=== PATIENT | male | born 1955 | race Caucasian/White ===

== ENCOUNTER 2021-02-17 18:28 | Inpatient (IN) | payer BC, MEDICAID ==
[~2021-02-17] VITALS: Ht 172.7 cm; Wt 70.9 kg
--- NOTE | 2021-02-17 18:43 | NUR ---
Patient brought in by [facility] 88 for vomiting bright red blood for the last 6 hours, patient is alert and oriented upon arrival
[2021-02-17] MEDS ORDERED: IV NORMAL SALINE 1000 ML BAG IV ONE (18:45)
[2021-02-17] MEDS ORDERED: PANTOPRAZOLE SODIUM IV 80 MG in IV DEXTROSE 5% 500 ML IV ONE (18:45)
[2021-02-17] MEDS ORDERED: DILTIAZEM HCL 25 MG IV IV ONE ×3 (19:15→23:00)
[2021-02-17 19:16] LABS: MEAN CORPUSCULAR HEMOGLOBIN 35.1 uug (23.8-33.4); MEAN CORPUSCULAR VOLUME 108.5 fL (73.0-96.2); PLATELET COUNT (AUTO) 187 K/uL (152-348)
[2021-02-17 19:18] LABS: CREATININE 1.3 mg/dL (0.6-1.3); POTASSIUM 4.3 mmol/L (3.5-5.1)
[2021-02-17] MEDS ORDERED: PANTOPRAZOLE SODIUM 40 MG VIAL ONE (19:22)
[2021-02-17 19:28] LABS: BILIRUBIN,DIRECT 0.7 mg/dL (0.0-0.2); BILIRUBIN,TOTAL 1.6 mg/dL (0.2-1.0); TOTAL PROTEIN, SERUM 6.9 g/dL (6.4-8.2)
[2021-02-17] MEDS ORDERED: DILTIAZEM HCL 25 MG IV ONE ×3 (19:28→23:07)
[2021-02-17] MEDS ORDERED: LEVO50TA8 PO (19:45)
[2021-02-17] MEDS ORDERED: METO-357 PO (19:45)
[2021-02-17] MEDS ORDERED: AMLO10TA59 PO (19:45)
[2021-02-17] MEDS ORDERED: MAGNESIUM SULFATE/D5W 100 ML ONE ×3 (19:47→22:20)
[2021-02-17] MEDS ORDERED: POTASSIUM CHLORIDE 50 ML ONE ×4 (19:47→23:30)
[2021-02-17] MEDS: MAGNESIUM SULFATE/D5W 100 ML IV SCH ×3 (19:50→22:19)
[2021-02-17] MEDS: POTASSIUM CHLORIDE 50 ML IV SCH ×4 (19:50→23:30)
[2021-02-17] MEDS ORDERED: IV NS 1000 ML 1,000 ML IV ONE ×2 (20:00)
[2021-02-18] VITALS (15 sets, daily range): BP systolic 112–182; BP diastolic 64–97
[2021-02-18 00:47] LABS: *BILIRUBIN,URIN NEGATIVE (NEGATIVE); *CLARITY,URINE CLEAR (CLEAR); *COLOR,URINE YELLOW (YELLOW); *KETONES,URINE 3+ (NEGATIVE); *UROBILINOGEN,URINE 0.2 E.U./dl (NORMAL); LEUKOCYTE ESTERASE ,URINE NEGATIVE (NEGATIVE); NITRITE, URINE NEGATIVE (NEGATIVE); PH,URINE 5.5 (5.0-8.0); UGLUCOSE NEGATIVE (NEGATIVE)
[2021-02-18 00:49] LABS: *BLOOD, URINE TRACE (NEGATIVE)
--- NOTE | 2021-02-18 00:53 | NUR ---
Dr. Garza on panel call with Dr. Bonifacio Bae
[2021-02-18 00:57] LABS: BACTERIA,URINE NONE SEEN /HPF (NONE SEEN); COARSE GRANULAR CASTS,URINE 0-3 /LPF; RBC,URINE 0-3 /HPF (0-3); SQUAMOUS EPITHELIAL CELL,UR FEW /HPF (NONE SEEN); WBC,URINE 0-3 /HPF (0-3)
--- NOTE | 2021-02-18 01:10 | NUR ---
attempted to give report. nurse not available at this time
[2021-02-18] MEDS ORDERED: THIAMINE HCL 100 MG TABLET PO ONE (01:15)
[2021-02-18] MEDS ORDERED: IV NS 1000 ML 1,000 ML IV ONE (01:15)
[2021-02-18] MEDS ORDERED: THIAMINE HCL 100 MG TABLET ONE (01:24)
[2021-02-18] MEDS ORDERED: CHLORDIAZEPOXIDE HCL 25 MG CAPSULE PO ONE (01:30)
--- NOTE | 2021-02-18 01:33 | NUR ---
2nd attempt for report. nurse still not available
--- NOTE | 2021-02-18 02:10 | NUR ---
Admitted a 65 y/o male to Telemetry with an admitting diagnosis of Lactic Acidosis. Pt is able to transfer on his own to the bed. Pt is A&Ox4, verbally responsive. Head to toe assessment done, Sinus tachy on tele at 105/min. Belongings checked and placed at bedside. Admission care rendered. Safety measures initiated, call light within reach.
[2021-02-18] MEDS ORDERED: Z GUARD REMEDY PASTE 57 GM TUBE TOP PRN (02:30)
[2021-02-18] MEDS ORDERED: ONDANSETRON 4 MG/2 ML VIAL IV PRN (02:30)
[2021-02-18] MEDS ORDERED: ACETAMINOPHEN 325 MG TABLET PO PRN (02:30)
[2021-02-18] MEDS: IV D5LR 1,000 ML IV PRN ×3 (02:47→20:05)
--- NOTE | 2021-02-18 03:20 | NUR ---
Pt has pulse of 133. Librium 100 mg not available. made aware. no new orders received. will continue to monitor.
[2021-02-18] MEDS ORDERED: METOPROLOL TARTRATE 50 MG TABLET PO ONE (04:45)
[2021-02-18] MEDS ORDERED: ETOMIDATE 20 MG/10 ML VIAL IV ONE ×2 (06:30→15:00)
[2021-02-18] MEDS ORDERED: SWABABLE VALVE TRANSFER SET EA MC ONE (07:05)
[2021-02-18] MEDS ORDERED: IV NORMAL SALINE 250 ML IV ONE (07:06)
[2021-02-18] MEDS ORDERED: IOHEXOL 350 100 ML INFUS..BTL ONE (07:06)
[2021-02-18 07:39] LABS: MEAN CORPUSCULAR HEMOGLOBIN 35.9 uug (23.8-33.4); MEAN CORPUSCULAR VOLUME 107.4 fL (73.0-96.2)
[2021-02-18 07:42] LABS: THYROID STIMULATING HORMONE 4.226 mIU/mL (0.358-3.740)
[2021-02-18 07:44] LABS: HEMATOCRIT 28.7 % (36.7-47.1)
[2021-02-18 07:45] LABS: BILIRUBIN,TOTAL 1.9 mg/dL (0.2-1.0); CREATININE 1.1 mg/dL (0.6-1.3); MAGNESIUM 2.2 mg/dL (1.8-2.4); PLATELET COUNT (AUTO) 91 K/uL (152-348); POTASSIUM 4.8 mmol/L (3.5-5.1); TOTAL PROTEIN, SERUM 5.7 g/dL (6.4-8.2)
[2021-02-18 07:59] LABS: PHOSPHOROUS 0.5 mg/dL (2.5-4.9)
--- NOTE | 2021-02-18 08:25 | NUR ---
Contacted [facility] Jack Erwin to report no response from Bonifacio Bae and escalate the call to Dr. Knight. Zander Jones able to respond for orders.
[2021-02-18] MEDS ORDERED: CEFTRIAXONE 1 G in IV DEXTROSE 5% 50 ML IV SCH (08:30)
[2021-02-18] MEDS ORDERED: OCTREOTIDE ACETATE DRIP 500 MCG in IV NORMAL SALINE 99 ML IV PRN (08:30)
[2021-02-18] MEDS ORDERED: PANTOPRAZOLE SODIUM IV 80 MG in IV DEXTROSE 5% 500 ML IV SCH (08:30)
[2021-02-18] MEDS ORDERED: PANTOPRAZOLE SODIUM 40 MG VIAL IV ONE (08:30)
--- NOTE | 2021-02-18 08:30 | NUR ---
Found the pt inside the bathroom, face down, vomiting blood. Cathode Washer checked for responsiveness, pt is unconscious, pulse is present. Cathode Washer asked for help to place the pt on his back on the floor. Pt suddenly regained consciousness, agitated, fighting back. Successfully transferred pt to the bed, VS checked. Oxygen level dropped to 81% and heart rate 35. Called a CODE BLUE due to deteriorating saturation and heart rate. Placed on a nonrebreather mask @ 10LPM. STAT Chest xray, CBC, CMP, Troponin, EKG was ordered by ER doctor and received an order to transfer to CCU at [facility] status. Orders carried out. Referred all results to ER doctor. Consent also signed by patient for CTA Chest angio. Paged talent acquisition program manager for nights to notify the code, did not received a call back. Paged MD talent acquisition program manager for the day, no call back received. Report given to Mya CCU nurse. Critical labs reported. Discharged to CCU at 0830 am.
[2021-02-18] MEDS ORDERED: OCTREOTIDE ACETATE 50 MCG/1 ML ML IV ONE (09:00)
[2021-02-18] MEDS ORDERED: SODIUM PHOSPHATE MM 15 MMOL in IV NORMAL SALINE 250 ML IV ONE ×2 (09:00→15:00)
[2021-02-18] MEDS: OCTREOTIDE ACETATE DRIP 500 MCG in IV NORMAL SALINE 99 ML IV SCH ×2 (09:07→20:04)
--- NOTE | 2021-02-18 09:39 | NUR ---
Received patient from 3rd floor patient on room air 100% oxygen saturation, sinus rhythm on the monitor, hemodynamically stable and anxious. Patient oriented to unit, and inserted new IV's for sandostatin drip and sodium phos.
[2021-02-18 10:28] LABS: *BILIRUBIN,URIN NEGATIVE (NEGATIVE); *BLOOD, URINE NEGATIVE (NEGATIVE); *CLARITY,URINE SLIGHTLY CLOUDY (CLEAR); *COLOR,URINE AMBER (YELLOW); *KETONES,URINE 1+ (NEGATIVE); *UROBILINOGEN,URINE 0.2 E.U./dl (NORMAL); LEUKOCYTE ESTERASE ,URINE NEGATIVE (NEGATIVE); NITRITE, URINE NEGATIVE (NEGATIVE); PH,URINE 6.5 (5.0-8.0)
[2021-02-18 10:49] LABS: UGLUCOSE 1+ (NEGATIVE)
[2021-02-18 10:58] LABS: RBC,URINE 0-3 /HPF (0-3)
[2021-02-18 10:59] LABS: BACTERIA,URINE NONE SEEN /HPF (NONE SEEN); SQUAMOUS EPITHELIAL CELL,UR FEW /HPF (NONE SEEN); WBC,URINE NONE SEEN /HPF (0-3)
[2021-02-18 11:18] LABS: BAND % (MANUAL) 5 % (0-10); LYMPHOCYTES % (MANUAL) 18 % (20-40); MONOCYTES % (MANUAL) 8 % (2-10); NEUTROPHILS % (MANUAL) 69 % (42-75)
--- NOTE | 2021-02-18 11:27 | NUR ---
Notified dr mcgrath about lipase level and urine ketones and glucose.
[2021-02-18] MEDS: PIPERACILLIN SODIUM/TAZOBACTAM 3.375 G in IV DEXTROSE 5% 50 ML IV SCH ×2 (11:56→18:40)
[2021-02-18] MEDS: VANCOMYCIN IV 1,250 MG in IV DEXTROSE 5% 250 ML IV SCH (12:17)
--- NOTE | 2021-02-18 13:35 | NUR ---
Patient picked up by surgical team for EGD.
[2021-02-18] MEDS ORDERED: FENTANYL CITRATE 100 MCG/2 ML AMPUL ONE (14:18)
[2021-02-18] MEDS ORDERED: ROCURONIUM BROMIDE 50 MG/5 ML VIAL ONE (14:19)
[2021-02-18] MEDS ORDERED: SUCCINYLCHOLINE CHLORIDE 200 MG/10 ML VIAL ONE (14:19)
[2021-02-18] MEDS ORDERED: PROPOFOL 1,000 MG/100 ML BOTTLE IV ONE (14:38)
[2021-02-18] MEDS ORDERED: PROPOFOL 200 MG/20 ML BOTTLE ONE (14:41)
[2021-02-18] MEDS ORDERED: MIDAZOLAM HCL 2 MG/2 ML VIAL ONE ×3 (14:51→15:53)
[2021-02-18] MEDS ORDERED: SIMETHICONE 40 MG/0.6 ML, 30ML BOTTLE MC ONE (15:00)
[2021-02-18] MEDS ORDERED: PHENYLEPHRINE 10 MG/1 ML VIAL IV ONE ×2 (15:00→15:08)
--- NOTE | 2021-02-18 15:15 | NUR ---
PT PLACED ON VENT IN RECOVERY WITH SETTINGS ON AC16/500/50%. PT HAS A 7.5 ETT SECURED AT 22cm LIP. PT SEDATED AND TOLERATING CURRENT VENT SETTINGS FINE WITH NO DISTRESS. WILL CONTINUE TO MONITOR
[2021-02-18] MEDS ORDERED: PROPOFOL 100 ML IV PRN (16:15)
--- NOTE | 2021-02-18 16:30 | NUR ---
Received patient from Recovery, patient had been intubated and propofol running Vent settings were ac 16, TV 500, 50% fio2, with a 7.5 ETT 22 cm at the lipline.
[2021-02-18 16:58] LABS: ABG BASE EXCESS 0.2 mmol/L; ABG PH 7.502 (7.350-7.450); ABG PO2 198.5 mmHg (75.0-100.0); ABG SITE RIGHT RADIAL; ABG TOTAL HEMOGLOBIN 8.9 G/dL (13.5-18.0); COHb 1.1 % (0.5-1.5); MetHb 0.3 % (0.0-1.5); O2Hb 98.2 % (94.0-97.0); VENT MODE VENT - A/C; VT, ABG 500 mL
--- NOTE | 2021-02-18 17:09 | NUR ---
ABG DONE PER AMANDA IBRAHIM. FIO2 TITRATED DOWN TO 40%
--- NOTE | 2021-02-18 17:20 | NUR ---
received response from Dr. OCHOA about abg results relayed to make vent changes tv 450, fio2 40%
[2021-02-18 17:46] LABS: HEMATOCRIT 24.1 % (36.7-47.1); MEAN CORPUSCULAR HEMOGLOBIN 34.5 uug (23.8-33.4); PLATELET COUNT (AUTO) 66 K/uL (152-348)
[2021-02-18 17:51] LABS: CREATININE 0.8 mg/dL (0.6-1.3); POTASSIUM 4.1 mmol/L (3.5-5.1)
[2021-02-18] MEDS: FENTANYL CITRATE/PF 1,000 MCG in IV NORMAL SALINE 80 ML IV PRN (18:00)
[2021-02-18] MEDS: PROPOFOL 100 ML IV PRN ×2 (18:00→21:08)
[2021-02-18] MEDS: METOCLOPRAMIDE HCL 10 MG/2 ML VIAL IV SCH (18:40)
[2021-02-18 18:56] LABS: LYMPHOCYTES % (MANUAL) 16 % (20-40); MONOCYTES % (MANUAL) 6 % (2-10); NEUTROPHILS % (MANUAL) 78 % (42-75)
--- NOTE | 2021-02-18 19:45 | NUR ---
Pt received on vent settings of A/C 16, VT 450 and FIO2-40%. No resp. distress noted. 7.5 ETT is patent and secure at approx. 22cm. BVM is at bedside. Pt to be monitored throughout the shift and PRN SX. Ventilator alarm parameters have been checked and remain audible.
--- NOTE | 2021-02-18 20:00 | NUR ---
ROUNDS MADE PATIENT IN BED ORALLY INTUBATED ON AC 16/500/ 40% PEEP5 5,SUCTION VIA MOUTH AND ETT VERY MINIMAL SECRETION . ORAL CARE DONE . PATIENT ON FENTANYL DRIP AND PROPOFOL FOR SEDATION.NPO ,NO ACTIVE BLEEDING NOTED ON SANDOSTATIN DRIP . PATIENT OPEN EYES TO LIGHT PAIN AND NAME ,WITH DRAWS TO PAIN DOESN'T FOLLOW COMMANDS . APPLIED SOFT BILATERAL WRIST RESTRAINTS FOR PATIENT SAFETY WILL FOLLOW WRIST RESTRAINTS PROTOCOL . SR ON THE HEART MONITOR .AFEBRILE .NO S/S OF DISCOMFORT WILL CONTINUE TO MONITOR V/S AND LEVELS OF PAIN .
--- NOTE | 2021-02-18 20:01 | NUR ---
Patient continues to be sedated on propofol and fentanyl on mechanical ventilator, hemodynamically stable, afebrile, no distress noted at this time. Bed in low positoin, side rails upx2. Report given to shift supervisor nurse.
[2021-02-18] MEDS: PANTOPRAZOLE SODIUM 40 MG VIAL IV SCH (20:09)
[2021-02-18] MEDS: LORAZEPAM 2 MG/1 ML VIAL IV PRN (20:09)
--- NOTE | 2021-02-18 20:09 | NUR ---
GIVEN ATIVAN PATIENT MOVING BUE AND REACHING TO THE ETT TUBE ,PATIENT OPEN EYES TO NAME BUT DOESN'T FOLLOW COMMANDS.WILL CONTINUE TO MONITOR FOR ALCOHOL WITHDRAWAL SYMPTOMS .
--- NOTE | 2021-02-18 22:30 | NUR ---
PM CARE DONE AND CHANGED SOILED LINENS AND GOWN . F/C DONE ,TURNED AND REPOSITION PATIENT OFF LOADED BACK WITH PILLOW AND BILATERAL HEELS OFF BED .SCDS USED TO BLE .
[2021-02-19] VITALS (28 sets, daily range): BP systolic 89–135; BP diastolic 47–74
[2021-02-19] MEDS: METOCLOPRAMIDE HCL 10 MG/2 ML VIAL IV SCH ×4 (00:34→17:44)
[2021-02-19] MEDS: LORAZEPAM 2 MG/1 ML VIAL IV PRN ×3 (00:34→13:18)
[2021-02-19] MEDS: PROPOFOL 100 ML IV PRN ×6 (00:34→22:39)
[2021-02-19] MEDS: PIPERACILLIN SODIUM/TAZOBACTAM 3.375 G in IV DEXTROSE 5% 50 ML IV SCH ×4 (00:35→17:44)
[2021-02-19 01:16] LABS: HEMATOCRIT 22.8 % (36.7-47.1)
[2021-02-19] MEDS ORDERED: IV NS 1000 ML 1,000 ML IV ONE (02:15)
[2021-02-19] MEDS: VANCOMYCIN IV 1,250 MG in IV DEXTROSE 5% 250 ML IV SCH (04:46)
[2021-02-19] MEDS: OCTREOTIDE ACETATE DRIP 500 MCG in IV NORMAL SALINE 99 ML IV SCH ×2 (04:46→15:17)
[2021-02-19] MEDS: IV D5LR 1,000 ML IV PRN ×3 (04:51→22:40)
[2021-02-19 06:03] LABS: HEMATOCRIT 23.1 % (36.7-47.1); MEAN CORPUSCULAR HEMOGLOBIN 34.6 uug (23.8-33.4)
[2021-02-19 06:12] LABS: CREATININE 0.8 mg/dL (0.6-1.3); MAGNESIUM 1.8 mg/dL (1.8-2.4); PHOSPHOROUS 1.6 mg/dL (2.5-4.9); POTASSIUM 3.3 mmol/L (3.5-5.1)
[2021-02-19 06:24] LABS: PLATELET COUNT (AUTO) 44 K/uL (152-348)
[2021-02-19] MEDS: FENTANYL CITRATE/PF 1,000 MCG in IV NORMAL SALINE 80 ML IV PRN (06:56)
[2021-02-19 08:12] LABS: ABG BASE EXCESS 2.2 mmol/L; ABG HCO3 26.2 mmol/L; ABG PCO2 37.9 mmHg (35.0-45.0); ABG PH 7.457 (7.350-7.450); ABG PO2 86.7 mmHg (75.0-100.0); ABG SITE RIGHT RADIAL; ABG TOTAL HEMOGLOBIN 7.8 G/dL (13.5-18.0); COHb 1.7 % (0.5-1.5); MetHb 0.5 % (0.0-1.5); O2Hb 94.4 % (94.0-97.0); VENT MODE VENT - A/C 16; VT, ABG 450 mL
[2021-02-19] MEDS ORDERED: POTASSIUM CHLORIDE 50 ML IV SCH (09:00)
[2021-02-19] MEDS: PANTOPRAZOLE SODIUM 40 MG VIAL IV SCH ×2 (09:16→21:03)
[2021-02-19 09:44] LABS: BAND % (MANUAL) 1 % (0-10); EOSINOPHILS % (MANUAL) 3 % (0-8); LYMPHOCYTES % (MANUAL) 27 % (20-40); MONOCYTES % (MANUAL) 3 % (2-10); NEUTROPHILS % (MANUAL) 66 % (42-75)
[2021-02-19] MEDS: POTASSIUM PHOSPHATE MM 7.5 MMOL in IV NORMAL SALINE 97.5 ML IV SCH ×2 (09:57→13:19)
[2021-02-19] MEDS ORDERED: MIDAZOLAM HCL 2 MG/2 ML VIAL ONE (10:54)
--- NOTE | 2021-02-19 11:06 | NUR ---
Dr Gallegos at bedside for EGD, report given to OR nurse and anesthesiologist. Platelet level and request for 1 unit platelet transfusion brought up to Dr Gallegos but Dr Gallegos refused this request. No platelets ordered at this time.
[2021-02-19] MEDS ORDERED: SIMETHICONE 40 MG/0.6 ML, 30ML BOTTLE MC ONE (11:20)
[2021-02-19] MEDS ORDERED: IRR STERIL WATER FOR IRR 1000 ML BOTTLE IR ONE (11:20)
[2021-02-19] MEDS ORDERED: OCTREOTIDE ACETATE DRIP 500 MCG in IV NORMAL SALINE 99 ML IV SCH (15:00)
--- NOTE | 2021-02-19 18:13 | NUR ---
Pt having some decreased BPs, call placed to Dr Cook and left voicemail at [phone] and sent a text message at [phone].
[2021-02-19] MEDS: VANCOMYCIN IV 1,000 MG in IV DEXTROSE 5% 250 ML IV SCH (18:28)
[2021-02-19] MEDS ORDERED: NOREPINEPHRINE BITARTRATE 8 MG in IV NORMAL SALINE 242 ML IV PRN (18:45)
--- NOTE | 2021-02-19 18:50 | NUR ---
Order received for Levophed prn SBP <90. I/O entered, including 800ml bloody drainage suctioned from upper GI during EGD today. Reporting off to nightshift RN.
--- NOTE | 2021-02-19 19:55 | NUR ---
Patient received on vent settings of A/C 16, VT 450 and FIO2-30%. No resp. distress noted. 7.5 ETT is patent and secure at approx. 24cm. BVM is at bedside. Patient to be monitored throughout the shift and PRN SX. Ventilator alarm parameters have been checked and remain audible. Addendum: 02/19/21 at 2137 by RAYMUNDO SCHWARTZ RT Amended: Links added.
[2021-02-20] VITALS (27 sets, daily range): BP systolic 103–172; BP diastolic 39–89
[2021-02-20] MEDS: METOCLOPRAMIDE HCL 10 MG/2 ML VIAL IV SCH ×5 (00:37→23:46)
[2021-02-20] MEDS: PIPERACILLIN SODIUM/TAZOBACTAM 3.375 G in IV DEXTROSE 5% 50 ML IV SCH ×5 (00:37→23:47)
[2021-02-20] MEDS: OCTREOTIDE ACETATE DRIP 500 MCG in IV NORMAL SALINE 99 ML IV SCH ×3 (02:58→21:47)
[2021-02-20] MEDS: PROPOFOL 100 ML IV PRN ×2 (03:33→08:39)
[2021-02-20] MEDS: FENTANYL CITRATE/PF 1,000 MCG in IV NORMAL SALINE 80 ML IV PRN (04:55)
[2021-02-20 05:11] LABS: PLATELET COUNT (AUTO) 56 K/uL (152-348)
[2021-02-20 05:16] LABS: MEAN CORPUSCULAR HEMOGLOBIN 33.9 uug (23.8-33.4); MEAN CORPUSCULAR VOLUME 101.5 fL (73.0-96.2)
[2021-02-20 05:20] LABS: CREATININE 0.8 mg/dL (0.6-1.3); MAGNESIUM 1.5 mg/dL (1.8-2.4); PHOSPHOROUS 2.4 mg/dL (2.5-4.9); POTASSIUM 2.9 mmol/L (3.5-5.1)
[2021-02-20] MEDS: VANCOMYCIN IV 1,000 MG in IV DEXTROSE 5% 250 ML IV SCH ×2 (06:01→18:21)
--- NOTE | 2021-02-20 07:15 | NUR ---
Received pt. on CPAP trial pt. restless, agitated pt. head golf coach and educated on breathing and relaxation techniques and if successful possible extubation today, patient follows commands but not fully propofol running at low dose see IV spread sheet. Cardiac crump stable no need of vasopressors. IV lines LAC with leaking noted. Ml RUE patent. Lainez to gravity. will continue to monitor. for skin assessment see ICU/ flow sheet.
[2021-02-20] MEDS: IV D5LR 1,000 ML IV PRN ×2 (07:34→18:21)
--- NOTE | 2021-02-20 08:00 | NUR ---
RECEIVED PT ON ORDERED A/C VENT SETTINGS. PLACED ON PSV 7, PEEP +5, 30% PER ORDER FOR WEANING TRIAL. RN INOCENCIA AWARE. ABG TO BE DONE IN 1 HR. AMBU BAG AT BEDSIDE.
--- NOTE | 2021-02-20 08:00 | NUR ---
CPAP trial started pt. off propofol and fentanyl drip
[2021-02-20] MEDS: MAGNESIUM SULFATE/D5W 100 ML IV SCH ×4 (08:10→10:44)
[2021-02-20] MEDS: POTASSIUM CHLORIDE 50 ML IV SCH ×4 (08:15→10:45)
--- NOTE | 2021-02-20 08:15 | NUR ---
Attending physician Dr. Jhoan Berumen in the unit to follow up on pt. report given and orders for picc line insertion and 1 unit of blood to be transfused once pt. has picc line inserted.
--- NOTE | 2021-02-20 08:30 | NUR ---
Pulmonary services, Dr. Paz in the unit to see and examine pt. report given including ABG results and after assessing pt. orders to extubate pt. received. RT Kike morgan.
[2021-02-20] MEDS: PANTOPRAZOLE SODIUM 40 MG VIAL IV SCH ×2 (08:36→21:38)
[2021-02-20 09:31] LABS: ABG BASE EXCESS 1.3 mmol/L; ABG HCO3 24.8 mmol/L; ABG PCO2 34.6 mmHg (35.0-45.0); ABG PH 7.474 (7.350-7.450); ABG PO2 65.7 mmHg (75.0-100.0); ABG SITE LEFT RADIAL; ABG TOTAL HEMOGLOBIN 8.3 G/dL (13.5-18.0); COHb 1.3 % (0.5-1.5); MetHb 0.6 % (0.0-1.5); O2Hb 92.1 % (94.0-97.0); VENT MODE VENT - PSUPPORT
[2021-02-20] MEDS ORDERED: POTASSIUM PHOSPHATE MM 15 MMOL in IV NORMAL SALINE 250 ML IV ONE (10:00)
[2021-02-20] MEDS ORDERED: DC PROPOFOL ONCE EXTUBATED XX PRN (10:10)
--- NOTE | 2021-02-20 10:15 | NUR ---
PT TOLERATED PSV WEANING TRIAL WELL. NO DISTRESS NOTED. PT EXTUBATED AT THIS TIME PER MD ORDER WITHOUT ANY COMPLICATIONS. PLACED ON 6LPM SIMPLE MASK POST EXTUBATION. WILL TITRATE O2 ACCORDINGLY.
--- NOTE | 2021-02-20 10:15 | NUR ---
As ordered at this time pt. completely off sedation and extubated as ordered by veterinarian laboratory animal care pt. placed on FM 6 liters saturation 97-99%. no respiratory distress noted.
--- NOTE | 2021-02-20 12:00 | NUR ---
FIO2 TITRATED TO 3LPM VIA NASAL CANNULA WITH BUBBLE HUMIDIFIER. PT MAINTAINING SATS OVER 93% ORDERED. WILL TITRATE ACCORDINGLY.
--- NOTE | 2021-02-20 14:15 | NUR ---
Patient AAOx1, restless agitated. At this time easily redirected, and reoriented.
--- NOTE | 2021-02-20 16:00 | NUR ---
Patient restless agitated and attempting to get out of bed unsupervised.
[2021-02-20] MEDS: LORAZEPAM 2 MG/1 ML VIAL IV PRN ×2 (16:15→21:42)
--- NOTE | 2021-02-20 17:00 | NUR ---
Attending Dr. Jhoan Berumen called and notified of sbp above 150's. orders received.
--- NOTE | 2021-02-20 18:00 | NUR ---
PT out of bed unsupervised unsteady gait noted, no injury sustained, pt reoriented and able to follow commands.
[2021-02-20] MEDS: hydrALAZINE HCL 20 MG/1 ML VIAL IV PRN (21:38)
--- NOTE | 2021-02-20 22:21 | NUR ---
Patient remains restless agitated, attempting to removed epstein catheter. mittens in place. BUE warm to touc, circulation intact.
[2021-02-21] VITALS (15 sets, daily range): BP systolic 101–158; BP diastolic 48–89
[2021-02-21] MEDS: IV D5LR 1,000 ML IV PRN ×3 (02:12→21:38)
[2021-02-21 04:50] LABS: HEMATOCRIT 25.9 % (36.7-47.1); MEAN CORPUSCULAR HEMOGLOBIN 33.2 uug (23.8-33.4); MEAN CORPUSCULAR VOLUME 98.5 fL (73.0-96.2); PLATELET COUNT (AUTO) 64 K/uL (152-348)
[2021-02-21 05:18] LABS: CREATININE 0.7 mg/dL (0.6-1.3); PHOSPHOROUS 2.8 mg/dL (2.5-4.9); POTASSIUM 3.2 mmol/L (3.5-5.1)
[2021-02-21] MEDS: PIPERACILLIN SODIUM/TAZOBACTAM 3.375 G in IV DEXTROSE 5% 50 ML IV SCH ×4 (05:31→23:35)
[2021-02-21] MEDS: METOCLOPRAMIDE HCL 10 MG/2 ML VIAL IV SCH ×4 (05:37→23:53)
[2021-02-21] MEDS: VANCOMYCIN IV 1,000 MG in IV DEXTROSE 5% 250 ML IV SCH ×2 (06:07→18:22)
--- NOTE | 2021-02-21 06:45 | NUR ---
Left pt. resting comfortably. Neuro-crump remains slightly restless and agitated attempting to remove epstein catheter and IV lines. On [facility] mittens BUE. On NC 3L with saturation above 92% with no respiratory distress. Afebrile for the last 24hrs. epstein to gravity. Will continue with care plan and endorse to incoming R.N.
[2021-02-21] MEDS: OCTREOTIDE ACETATE DRIP 500 MCG in IV NORMAL SALINE 99 ML IV SCH ×2 (07:31→17:52)
[2021-02-21] MEDS: PANTOPRAZOLE SODIUM 40 MG VIAL IV SCH ×2 (08:02→21:34)
[2021-02-21 08:23] LABS: ABG BASE EXCESS 2.7 mmol/L; ABG HCO3 26.6 mmol/L; ABG PCO2 37.8 mmHg (35.0-45.0); ABG PH 7.465 (7.350-7.450); ABG PO2 76.7 mmHg (75.0-100.0); ABG SITE RIGHT RADIAL; ABG TOTAL HEMOGLOBIN 9.5 G/dL (13.5-18.0); COHb 1.4 % (0.5-1.5); MetHb 0.3 % (0.0-1.5); O2Hb 94.1 % (94.0-97.0)
--- NOTE | 2021-02-21 08:51 | NUR ---
I CALLED [facility] AND SPOKE TO TERESA REGARDING X-RAYS NOT BEING READ WHEN ON TIME, SINCE THEY ARE STATS FROM CCU OR ICU. SHE SAID SHE WOULD BRING IT UP TO HER BOSS. i ASKED HER TO PLEASE HAVE RADIOLOGIST READ ALL 6 STUDIES THAT ARE PENDING FROM EARLY THIS MORNING
--- NOTE | 2021-02-21 09:22 | NUR ---
Spoke with patient's brother and daughter, given updates and answered questions. States that they will be visiting patient today. Given visiting hour information.
[2021-02-21] MEDS: POTASSIUM CHLORIDE 50 ML IV SCH ×4 (09:30→12:16)
--- NOTE | 2021-02-21 10:06 | NUR ---
Seen by Dr Orourke, Director Of Rehabilitation And Wellness. New orders received and implemented.
--- NOTE | 2021-02-21 10:50 | NUR ---
Patient been on room air since 744. Continually monitoring SpO2: 92-97%. Tolerating room air. No s/s of SOB or distress noted. Notified
--- NOTE | 2021-02-21 11:08 | NUR ---
Per family request, daughter Winnie as person to contact. Facesheet updated with daughter's phone number. Next of kin remains patient's brother as requested.
--- NOTE | 2021-02-21 11:32 | NUR ---
Seen by Dr Satnos, hospitalist. Discussed POC with MD. Received okay to transfer to Telemetry status. See MD notes for updated POC.
--- NOTE | 2021-02-21 11:40 | NUR ---
Seen by speech therapist for swallow eval. Diet changed to soft diet, per ST recommendation.
--- NOTE | 2021-02-21 15:16 | NUR ---
Mittens removed at 1215 and oriented patient to importance of lines. Patient verbalized understanding and agreed to use call light to ask for assistance. Patient AOx3, slightly forgetful but pleasant and able to reorient.
--- NOTE | 2021-02-21 18:30 | NUR ---
Gave report to Muriel BURNS. Patient to be transferred to [facility].
--- NOTE | 2021-02-21 20:37 | NUR ---
picked up by nurse with nonitor attached , belongings sent with the phone , and [place] [employer] , wallet , glasses , and clothes and toiletries
--- NOTE | 2021-02-21 20:40 | NUR ---
RECEIVED PATIENT FROM CCU, ALERT ORIENTED, NO SOB NO CHEST PAIN, PATIENT HAS NO COMPLAIN OF PAIN AT THIS TIME, NO VOMITING NOTED, CONT TO MONITOR.
[2021-02-22 00:05] VITALS: BP 144/56
[2021-02-22] MEDS: OCTREOTIDE ACETATE DRIP 500 MCG in IV NORMAL SALINE 99 ML IV SCH (03:51)
[2021-02-22 04:15] VITALS: BP 135/84
[2021-02-22] MEDS: METOCLOPRAMIDE HCL 10 MG/2 ML VIAL IV SCH ×2 (05:02→11:46)
[2021-02-22] MEDS: PIPERACILLIN SODIUM/TAZOBACTAM 3.375 G in IV DEXTROSE 5% 50 ML IV SCH (05:02)
[2021-02-22] MEDS: VANCOMYCIN IV 1,000 MG in IV DEXTROSE 5% 250 ML IV SCH ×2 (05:03→16:50)
--- NOTE | 2021-02-22 06:18 | NUR ---
PATIENT ALERT ORIENTED, NO SOB NO CHEST PAIN, NO COMPLAIN OF PAIN, NO NAUSEA NO VOMITING NOTED, CONT IV ABX ORDERED, PATIENT COOPERATIVE WITH CARE, CONT TO MONITOR.
[2021-02-22] MEDS: LEVOTHYROXINE SODIUM 50 MCG TABLET PO SCH (06:23)
[2021-02-22 06:32] LABS: HEMATOCRIT 25.7 % (36.7-47.1); MEAN CORPUSCULAR HEMOGLOBIN 33.4 uug (23.8-33.4); MEAN CORPUSCULAR VOLUME 98.9 fL (73.0-96.2); PLATELET COUNT (AUTO) 87 K/uL (152-348)
[2021-02-22 07:07] LABS: BILIRUBIN,DIRECT 0.6 mg/dL (0.0-0.2); BILIRUBIN,TOTAL 1.5 mg/dL (0.2-1.0); MAGNESIUM 1.9 mg/dL (1.8-2.4); PHOSPHOROUS 3.2 mg/dL (2.5-4.9)
[2021-02-22 07:11] LABS: CREATININE 0.8 mg/dL (0.6-1.3); POTASSIUM 3.5 mmol/L (3.5-5.1)
--- NOTE | 2021-02-22 08:00 | NUR ---
RECEIVED PATIENT SLEEPING IN BED WITH O2 VIA NASAL CANULA SATURATING 97%, SR ON MONITOR
[2021-02-22] MEDS: PANTOPRAZOLE SODIUM 40 MG VIAL IV SCH ×2 (08:20→20:26)
[2021-02-22] MEDS: AMLODIPINE 10 MG TABLET PO SCH (08:29)
[2021-02-22] MEDS: IV D5LR 1,000 ML IV PRN ×2 (08:39→21:49)
--- NOTE | 2021-02-22 11:00 | NUR ---
SEEN BY HOSPITALIST SAID TO CONTINUE TELEMETRY STATUS FOR NOW, CONTINUE SANDOSTATIN ORDERED
[2021-02-22 11:28] VITALS: BP 156/90
[2021-02-22] MEDS: PIPERACILLIN SODIUM/TAZOBACTAM 3.375 G in IV DEXTROSE 5% 100 ML IV SCH ×2 (14:13→20:56)
--- NOTE | 2021-02-22 14:45 | NUR ---
continue with telemetry monitoring ns ss of distress or pain
[2021-02-22 15:22] VITALS: BP 132/68
[2021-02-22] MEDS: METOCLOPRAMIDE HCL 10 MG/10 ML UDC PO SCH ×2 (16:50→20:27)
--- NOTE | 2021-02-22 19:00 | NUR ---
RECD PT IN BED,QUIETLY RESTING IN BED, NEEDS ATTENDED TO,NO ACUTE DISTRESS NOTED.IVF INFUSING WELL TO PICC LINE ON LEFT ARM.BP 167/76, APRESOLINE IVP ADMINISTERED, WILL CONTINUE TO MONITOR CONDITION.STILL ON TELE SR 99.
[2021-02-22 20:15] VITALS: BP 167/76
[2021-02-22] MEDS: hydrALAZINE HCL 20 MG/1 ML VIAL IV PRN (20:28)
--- NOTE | 2021-02-22 21:15 | NUR ---
BP RECHECKED 138/64, RESTING IN BED, LEFT ARM ELEVATED ON PILLOW. SLEPT ON AND OFF.
[2021-02-23 00:09] VITALS: BP 138/59
[2021-02-23 00:41] VITALS: BP 138/59
[2021-02-23 04:30] VITALS: BP 147/71
[2021-02-23 05:13] LABS: HEMATOCRIT 27.3 % (36.7-47.1); MEAN CORPUSCULAR HEMOGLOBIN 33.5 uug (23.8-33.4); MEAN CORPUSCULAR VOLUME 98.6 fL (73.0-96.2); PLATELET COUNT (AUTO) 108 K/uL (152-348)
[2021-02-23] MEDS: PIPERACILLIN SODIUM/TAZOBACTAM 3.375 G in IV DEXTROSE 5% 100 ML IV SCH (05:14)
[2021-02-23] MEDS: LEVOTHYROXINE SODIUM 50 MCG TABLET PO SCH (05:15)
[2021-02-23] MEDS: METOCLOPRAMIDE HCL 10 MG/10 ML UDC PO SCH ×2 (05:15→11:30)
[2021-02-23 05:17] LABS: CREATININE 0.9 mg/dL (0.6-1.3); POTASSIUM 3.2 mmol/L (3.5-5.1)
[2021-02-23] MEDS: VANCOMYCIN IV 1,000 MG in IV DEXTROSE 5% 250 ML IV SCH (05:51)
--- NOTE | 2021-02-23 07:30 | NUR ---
Patient received sitting at the edge of bed, alert and oriented x4. No reports of pain or discomforts at this time, on RA with no SOB or difficulties breathing. Patient is sinus tachycardic on monitor with HR in 100s. BEN midline patent running IVF as ordered. Call light within easy reach. Will continue to monitor.
[2021-02-23] MEDS ORDERED: PANT40TA2 PO (08:03)
[2021-02-23] MEDS ORDERED: PANTOPRAZOLE SODIUM 40 MG TABLET.DR PO SCH (08:07)
[2021-02-23] MEDS ORDERED: LEVO500T90 PO (08:09)
[2021-02-23] MEDS ORDERED: POTASSIUM CHLORIDE 20 MEQ TAB.PRT.SR PO ONE (08:15)
[2021-02-23 08:27] VITALS: BP 147/71
[2021-02-23] MEDS: AMLODIPINE 10 MG TABLET PO SCH (08:27)
--- NOTE | 2021-02-23 12:10 | NUR ---
Patient's family member brought patient new clothes, which were brought up to him. He was instructed to pick up driver new medications from the pharmacy and to follow up with his primary care physician and credit manager. Patient expressed understanding. Patient discharged in satisfactory condition with all his personal belongings.
[2021-02-23] MEDS ORDERED: VANCOMYCIN IV 1,250 MG in IV DEXTROSE 5% 250 ML IV SCH (17:00)
== END 2021-02-23 12:15 | disposition home or self-care (01) | DRG 981 ==
LOC: ER 18:28 → TELE3 02-18 01:50 → CCU 02-18 09:00 → TELE3 02-21 20:30
PROVIDERS: ADMIT Student in an Organized Health Care Education/Training Program; ATTEND Family Medicine
PROC: 30233N1 Transfusion of Nonautologous Red Blood Cells into Peripheral Vein, Percutaneous Approach (ICD-10-PCS; principal; 2021-02-18)
PROC: 0DJ08ZZ Inspection of Upper Intestinal Tract, Via Natural or Artificial Opening Endoscopic (ICD-10-PCS; 2021-02-18)
PROC: 05HB33Z Insertion of Infusion Device into Right Basilic Vein, Percutaneous Approach (ICD-10-PCS; 2021-02-18)
PROC: 0D968ZZ Drainage of Stomach, Via Natural or Artificial Opening Endoscopic (ICD-10-PCS; 2021-02-19)
PROC: B548ZZA Ultrasonography of Superior Vena Cava, Guidance (ICD-10-PCS; 2021-02-20)
PROC: 02HV33Z Insertion of Infusion Device into Superior Vena Cava, Percutaneous Approach (ICD-10-PCS; 2021-02-20)
DX: J69.0 Pneumonitis due to inhalation of food and vomit (principal); J96.01 Acute respiratory failure with hypoxia; K85.20 Alcohol induced acute pancreatitis without necrosis or infection; E44.0 Moderate protein-calorie malnutrition; K92.0 Hematemesis; F10.10 Alcohol abuse, uncomplicated; D64.9 Anemia, unspecified; D69.6 Thrombocytopenia, unspecified; E03.9 Hypothyroidism, unspecified; E83.39 Other disorders of phosphorus metabolism; E83.42 Hypomagnesemia; F17.210 Nicotine dependence, cigarettes, uncomplicated; I10 Essential (primary) hypertension; I48.91 Unspecified atrial fibrillation; K29.70 Gastritis, unspecified, without bleeding; K74.60 Unspecified cirrhosis of liver; Z20.822 Contact with and (suspected) exposure to COVID-19
CPT/HCPCS: 36415; 36569; 36600; 43235; 70030-TC; 70450; 71045; 71275; 72125; 76705; 82747; 83605; 83690; 83735; 84100; 84443; 85014; 85018; 85025; 85610; 85730; 86850; 86900; 86901; 86920; 93005; 94002; 94003; 97161; A4217; A4663; C9113; G0378; J0330; J0360; J0696; J2060; J2250; J2354; J2370; J2543; J2765; J3010; J3370; J3475; J3480; J3490; J7030; J7040; J7050; J7060; J7120; J8597; P9016; P9021; Q9967